=== PATIENT | female | born 1980 | race Caucasian/White ===

== ENCOUNTER 2019-05-18 07:00 | Inpatient (IN) | payer OTHER ==
[2019-05-18] MEDS: DEXTROSE 5%-LACTATED RINGERS 1,000 ML IV SCH ×2 (09:00→16:30)
[2019-05-18 09:52] LABS: BASO % 0.6 % (0-2.0); HEMATOCRIT 33.8 % (32.4-45.2); HEMOGLOBIN 11.2 GM/dL (10.7-15.3); LYMPH % 21.6 % (8-40); MCH 30.4 pg (25.7-33.7); MCHC 33.1 g/dl (32.0-36.0); MEAN CELL VOLUME 91.8 fl (80-96); MEAN PLT VOLUME 8.1 fl (7.5-11.1); MONO % 10.5 % (3.8-10.2); NEUT % 57.3 % (42.8-82.8); PLATELET COUNT 175 K/MM3 (134-434); RBC 3.68 M/mm3 (3.60-5.2); WHITE BLOOD COUNT 7.6 K/mm3 (4.0-10.0)
[2019-05-18 09:54] VITALS: BMI 26.9
[2019-05-18 10:07] LABS: INR 0.97 (0.83-1.09); PROTHROMBIN TIME (PATIENT) 11.4 SEC (9.7-13.0)
[2019-05-18 10:10] LABS: ACTIVATED PTT 29.6 SECONDS (25.2-36.5)
[2019-05-18 10:12] LABS: CALCIUM 8.8 mg/dL (8.5-10.1); CREATININE 0.4 mg/dL (0.55-1.3); POTASSIUM 3.7 mmol/L (3.5-5.1)
[2019-05-18] MEDS ORDERED: PROMETHAZINE HCL 25 MG/1 ML VIAL IVPUSH ONE (10:51)
[2019-05-18] MEDS ORDERED: BUTORPHANOL TARTRATE 1 MG/ML VIAL IVPB ONE (10:51)
[2019-05-18] MEDS ORDERED: DINOPROSTONE 10 MG VAGINAL SUPPOSITORY VG ONE (10:52)
[2019-05-18] MEDS ORDERED: ELECTROLYTE-148 SOLN 1,000 ML IV SCH (11:00)
--- NOTE | 2019-05-18 11:01 | HP ---
Past Medical History - Primary Care Physician PCP:: Kaylynn Robins - Admission Chief Complaint: ama. grand multip. 40.1 week History of Present Illness: 38 yo EDC 05/17/19 ega 40.1 weeks admitted for induction pt with multi and AMA History Source: Patient Limitations to Obtaining History: No Limitations - Past Medical History ...: 8 ...Para: 6 ...Term: 6 ...: 0 ...Spon : 1 ...Induced : 0 ...Multiple Gestation: 0 ...LMP: 10/04/18 ... Weeks Gestation by Dates: 40.1 ...EDC by Dates: 05/17/19 ...EDC by Sono: 05/17/19 - Past Surgical History Past Surgical History: Yes: None Hx Myomectomy: No Hx Transabdominal Cerclage: No - Smoking History Smoking history: Never smoked - Alcohol/Substance Use Hx Alcohol Use: No History of Substance Use: reports: None - Social History Usual Living Arrangement: Yes: With Spouse Home Medications - Allergies Allergies/Adverse Reactions: Allergies Allergy/AdvReac Type Severity Reaction Status Date / Time No Known Drug Allergies Allergy Verified 05/18/19 09:22 - Home Medications Home Medications: Ambulatory Orders Prenat 115/Iron Fum/Folic/Dss [ 19 Tablet] 1 each PO DAILY 05/18/19 Review of Systems - Review of Systems Constitutional: reports: No Symptoms Eyes: reports: No Symptoms HENT: reports: No Symptoms Neck: reports: No Symptoms Cardiovascular: reports: No Symptoms Respiratory: reports: No Symptoms Gastrointestinal: reports: No Symptoms Genitourinary: reports: No Symptoms Breasts: reports: No Symptoms Reported Musculoskeletal: reports: No Symptoms Integumentary: reports: No Symptoms Neurological: reports: No Symptoms Endocrine: reports: No Symptoms Hematology/Lymphatic: reports: No Symptoms Psychiatric: reports: No Symptoms Physical Exam - Maternity Vital Signs: Vital Signs Temperature 98.1 F 05/18/19 09:39 Pulse Rate 99 H 05/18/19 09:39 Respiratory Rate 20 05/18/19 09:39 Blood Pressure 133/80 05/18/19 09:39 O2 Sat by Pulse Oximetry (%) Constitutional: Yes: Well Nourished, No Distress Lungs: Clear to auscultation Breast(s): Yes: WNL - Abdominal Exam/OB Number of Fetuses: Single Presentation: Vertex Contractions: Yes Regularity: Regular Monitor Mode: External Heart Rate (range): 140 Heart Rate Location: [facility] Category: I - Vaginal Exam/OB Dilatation (cm): 3 Effacement (%): 50 Amniotic Membrane Status: Intact Presentation: Vertex/Position Station: -2 - Physical Exam Musculoskeletal: Yes: WNL Extremities: Yes: WNL Psychiatric: Yes: WNL, Alert, Oriented - Labs Lab Results: CBC, BMP 05/18/19 09:33 05/18/19 09:33 Hemorrhage Risk Assessment - Risk Factors Medium Risk Factors: Yes: Greater than 4 previous births Risk Score: 1 Risk Level: Medium Risk Problem List - Problems (1) Elderly multigravida in third trimester Problems reviewed: Yes Code(s): O09.523 - SUPERVISION OF ELDERLY MULTIGRAVIDA, THIRD TRIMESTER (2) Grand multipara Problems reviewed: Yes Code(s): Z64.1 - PROBLEMS RELATED TO MULTIPARITY Assessment/Plan Cat 1 IUp at 40 week grand multip 40.1 weeks AMA Plan Cervidil
[2019-05-18] MEDS ORDERED: AMPICILLIN - 2 GM in SODIUM CHLORIDE 100 ML IVPB ONE (11:02)
[2019-05-18] MEDS ORDERED: AMPICILLIN SODIUM 2 GM VIAL ONE (12:21)
[2019-05-18] MEDS ORDERED: AMPICILLIN SODIUM 1 GM VIAL ONE ×3 (16:11→20:23)
[2019-05-18] MEDS: AMPICILLIN - 1 GM in SODIUM CHLORIDE 100 ML IVPB SCH ×2 (16:31→20:20)
[2019-05-18] MEDS ORDERED: OXYTOCIN 20 UNITS in 0.9% NS 20 UNIT/1,000 ML INFUS.BAG IV ONE (20:23)
--- NOTE | 2019-05-18 20:41 | PN ---
Delivery - Delivery Vaginal Delivery: No Problems (Nuchal Cord x1) Type of Anesthesia: None Episiotomy/Laceration: 1st degree (repaired wit 2-0 chromic suture) EBL (cc): 300 Delivery, Single - Stages of Labor Placenta: Yes: Spontaneous - Condition of Infant Position: OA - Feeding Plan Initial Plan: Elected not to breastfeed exclusively throughout hospitalization Benefits of Exclusively reinforced: Yes
[2019-05-18] MEDS ORDERED: BENZOCAINE 20% 57 GM BOTTLE TP PRN (20:42)
[2019-05-18] MEDS ORDERED: WITCH HAZEL 50% (TUCKS) 40 PAD/JAR PAD TP PRN (20:42)
[2019-05-18] MEDS ORDERED: BISACODYL 10 MG SUPP.RECT PR PRN (20:42)
[2019-05-18] MEDS ORDERED: METHYLERGONOVINE MALEATE 0.2 MG/1 ML AMP IM PRN (20:42)
[2019-05-18] MEDS ORDERED: IBUPROFEN 600 MG TABLET (FP) PO PRN (20:42)
[2019-05-18] MEDS ORDERED: BENZOCAINE 28 GM HEMORRHOIDAL OINTMENT PR PRN (20:42)
[2019-05-18] MEDS ORDERED: ACETAMINOPHEN 325 MG TABLET (FP) ONE (22:14)
[2019-05-18] MEDS: OXYTOCIN 20 UNITS in 0.9% NS 20 UNIT/1,000 ML INFUS.BAG IV SCH (22:15)
[2019-05-18] MEDS: ACETAMINOPHEN 325 MG TABLET (FP) PO PRN (22:19)
[2019-05-18 23:13] LABS: BASO % 0.4 % (0-2.0); EOS % 3.4 % (0-4.5); HEMATOCRIT 29.2 % (32.4-45.2); HEMOGLOBIN 9.5 GM/dL (10.7-15.3); LYMPH % 10.6 % (8-40); MCHC 32.5 g/dl (32.0-36.0); MEAN CELL VOLUME 92.2 fl (80-96); MEAN PLT VOLUME 8.2 fl (7.5-11.1); MONO % 7.2 % (3.8-10.2); NEUT % 78.4 % (42.8-82.8); PLATELET COUNT 184 K/MM3 (134-434); RBC 3.17 M/mm3 (3.60-5.2); RDW 13.6 % (11.6-15.6); WHITE BLOOD COUNT 15.6 K/mm3 (4.0-10.0)
[2019-05-19] MEDS ORDERED: SODIUM CHLORIDE 500 ML IV ONE (00:30)
[2019-05-19] MEDS ORDERED: CARBOPROST TROMETHAMINE 250 MCG/ML AMPUL IM ONE (00:30)
[2019-05-19] MEDS: OXYTOCIN 20 UNITS in 0.9% NS 20 UNIT/1,000 ML INFUS.BAG IV SCH (01:00)
[2019-05-19] MEDS ORDERED: OXYTOCIN 20 UNITS in 0.9% NS 20 UNIT/1,000 ML INFUS.BAG IV ONE (01:06)
[2019-05-19] MEDS ORDERED: SODIUM CHLORIDE 1,000 ML IV SCH (01:30)
[2019-05-19 01:32] LABS: HEMATOCRIT 27.1 % (32.4-45.2); HEMOGLOBIN 8.8 GM/dL (10.7-15.3); MCH 30.3 pg (25.7-33.7); MCHC 32.6 g/dl (32.0-36.0); MEAN CELL VOLUME 92.9 fl (80-96); MEAN PLT VOLUME 8.3 fl (7.5-11.1); PLATELET COUNT 175 K/MM3 (134-434); RBC 2.91 M/mm3 (3.60-5.2); RDW 13.8 % (11.6-15.6); WHITE BLOOD COUNT 16.9 K/mm3 (4.0-10.0)
[2019-05-19] MEDS: AMPICILLIN - 1 GM in SODIUM CHLORIDE 100 ML IVPB SCH (02:44)
[2019-05-19 08:04] LABS: BASO % 0.3 % (0-2.0); EOS % 1.5 % (0-4.5); HEMATOCRIT 21.8 % (32.4-45.2); LYMPH % 14.4 % (8-40); MCH 29.9 pg (25.7-33.7); MCHC 32.2 g/dl (32.0-36.0); MEAN PLT VOLUME 8.4 fl (7.5-11.1); MONO % 9.1 % (3.8-10.2); NEUT % 74.7 % (42.8-82.8); PLATELET COUNT 150 K/MM3 (134-434); RBC 2.35 M/mm3 (3.60-5.2); WHITE BLOOD COUNT 14.3 K/mm3 (4.0-10.0)
[2019-05-19] MEDS ORDERED: DOCUSATE SODIUM 100 MG CAPSULE (FP) PO PRN (08:06)
--- NOTE | 2019-05-19 08:07 | PN ---
Post Note - Post Date of Delivery: 05/18/19 Post Day: 1 Vital Signs: Vital Signs - 24 hr 05/18/19 05/18/19 05/18/19 09:00 09:39 10:00 Temperature 97.8 F 98.1 F 98.4 F Pulse Rate 89 99 H 88 Respiratory 18 20 18 Rate Blood Pressure 133/80 133/80 129/75 O2 Sat by Pulse Oximetry (%) 05/18/19 05/18/19 05/18/19 11:00 12:00 13:00 Temperature Pulse Rate 90 98 H 97 H Respiratory 20 20 20 Rate Blood Pressure 134/78 119/65 134/74 O2 Sat by Pulse Oximetry (%) 05/18/19 05/18/19 05/18/19 14:00 15:00 17:00 Temperature 98.4 F 99 F Pulse Rate 102 H 100 H 86 Respiratory 20 20 18 Rate Blood Pressure 119/69 122/74 128/73 O2 Sat by Pulse Oximetry (%) 05/18/19 05/18/19 05/18/19 19:00 20:00 21:45 Temperature Pulse Rate 89 82 79 Respiratory 18 18 18 Rate Blood Pressure 129/78 131/83 112/65 O2 Sat by Pulse Oximetry (%) 05/18/19 05/18/19 05/18/19 22:00 22:15 22:30 Temperature 98.6 F Pulse Rate 78 88 85 Respiratory 18 18 18 Rate Blood Pressure 120/77 105/85 121/68 O2 Sat by Pulse Oximetry (%) 05/18/19 05/18/19 05/18/19 22:45 23:15 23:20 Temperature Pulse Rate 98 H 98 H 85 Respiratory 22 H 22 H 20 Rate Blood Pressure 101/70 88/60 L 102/47 L O2 Sat by Pulse Oximetry (%) 05/18/19 05/18/19 05/18/19 23:30 23:35 23:40 Temperature 98.4 F Pulse Rate 89 76 77 Respiratory 22 H 22 H 20 Rate Blood Pressure 78/59 L 97/70 115/66 O2 Sat by Pulse Oximetry (%) 05/18/19 05/19/19 05/19/19 23:45 00:00 00:15 Temperature Pulse Rate 95 H 93 H 90 Respiratory 20 20 20 Rate Blood Pressure 115/71 120/88 121/76 O2 Sat by Pulse Oximetry (%) 05/19/19 05/19/19 05/19/19 00:30 00:45 01:00 Temperature 98.3 F Pulse Rate 97 H 98 H 95 H Respiratory 20 20 20 Rate Blood Pressure 121/79 99/55 L 125/79 O2 Sat by Pulse Oximetry (%) 05/19/19 05/19/19 05/19/19 01:18 02:00 06:00 Temperature 98.0 F 98.1 F Pulse Rate 93 H 93 H Respiratory 18 18 Rate Blood Pressure 119/69 112/69 O2 Sat by Pulse 98 Oximetry (%) Labs: Laboratory Results - last 24 hr 05/18/19 05/18/19 05/18/19 09:33 09:33 09:33 WBC 7.6 RBC 3.68 Hgb 11.2 Hct 33.8 MCV 91.8 MCH 30.4 MCHC 33.1 RDW 14.0 Plt Count 175 MPV 8.1 Absolute Neuts (auto) 4.4 Neutrophils % 57.3 Lymphocytes % 21.6 Monocytes % 10.5 H Eosinophils % 10.0 H Basophils % 0.6 Nucleated RBC % 0 PT with INR 11.40 INR 0.97 PTT (Actin FS) 29.6 Cord Blood pH Cord Blood PCO2 Cord Blood PO2 Cord Blood HCO3 Cord Base Excess Sodium 138 Potassium 3.7 Chloride 108 H Carbon Dioxide 25 Anion Gap 6 L BUN 10.0 Creatinine 0.4 L Est GFR (CKD-EPI)AfAm 152.06 Est GFR (CKD-EPI)NonAf 131.20 Random Glucose 91 Calcium 8.8 RPR Titer Blood Type Antibody Screen 05/18/19 05/18/19 05/18/19 09:33 09:33 21:04 WBC RBC Hgb Hct MCV MCH MCHC RDW Plt Count MPV Absolute Neuts (auto) Neutrophils % Lymphocytes % Monocytes % Eosinophils % Basophils % Nucleated RBC % PT with INR INR PTT (Actin FS) Cord Blood pH 7.27 Cord Blood PCO2 63.8 Cord Blood PO2 < 49 H Cord Blood HCO3 28.1 Cord Base Excess -0.4 L Sodium Potassium Chloride Carbon Dioxide Anion Gap BUN Creatinine Est GFR (CKD-EPI)AfAm Est GFR (CKD-EPI)NonAf Random Glucose Calcium RPR Titer Nonreactive Blood Type O POSITIVE Antibody Screen Negative 05/18/19 05/18/19 05/19/19 21:04 23:05 00:50 WBC 15.6 H 16.9 H RBC 3.17 L 2.91 L Hgb 9.5 L 8.8 L Hct 29.2 L 27.1 L MCV 92.2 92.9 MCH 30.0 30.3 MCHC 32.5 32.6 RDW 13.6 13.8 Plt Count 184 175 MPV 8.2 8.3 Absolute Neuts (auto) 12.2 H Neutrophils % 78.4 D Lymphocytes % 10.6 D Monocytes % 7.2 Eosinophils % 3.4 Basophils % 0.4 Nucleated RBC % 0 PT with INR INR PTT (Actin FS) Cord Blood pH 7.33 Cord Blood PCO2 50.0 Cord Blood PO2 < 49 H Cord Blood HCO3 25.6 Cord Base Excess -0.7 L Sodium Potassium Chloride Carbon Dioxide Anion Gap BUN Creatinine Est GFR (CKD-EPI)AfAm Est GFR (CKD-EPI)NonAf Random Glucose Calcium RPR Titer Blood Type Antibody Screen - Subjective Subjective: Other (Blood count with severe anemia aftr blood transfusion) - Objective Afebrile: Yes Breast: Not engorged Abdomen: Soft, Non-tender Uterus: Fundus firm, Non-tender Vagina: Scant lochia Extremities: Non-tender - Assessment/Plan (1) Elderly multigravida in third trimester Assessment: S/P Normal , Other ( hemorrhage) Plan: Routine Care, Other (Ferrous sulfate BID transfuse 2 units of blood)
[2019-05-19] MEDS: FERROUS SO4 325 MG TABLET (FP) PO SCH ×2 (09:30→22:26)
[2019-05-19] MEDS: ACETAMINOPHEN 325 MG TABLET (FP) PO PRN (11:56)
[2019-05-20 08:19] LABS: HEMATOCRIT 23.4 % (32.4-45.2); HEMOGLOBIN 7.9 GM/dL (10.7-15.3); MCH 30.3 pg (25.7-33.7); MCHC 33.8 g/dl (32.0-36.0); MEAN CELL VOLUME 89.7 fl (80-96); MEAN PLT VOLUME 7.8 fl (7.5-11.1); PLATELET COUNT 143 K/MM3 (134-434); RBC 2.61 M/mm3 (3.60-5.2); RDW 14.6 % (11.6-15.6); WHITE BLOOD COUNT 9.9 K/mm3 (4.0-10.0)
[2019-05-20] MEDS: FERROUS SO4 325 MG TABLET (FP) PO SCH (10:45)
[2019-05-20] MEDS: ACETAMINOPHEN 325 MG TABLET (FP) PO PRN (10:47)
[2019-05-20 16:23] VITALS: BP 108/62; PULSE 91; TEMP 97.9
== END 2019-05-20 18:00 | disposition home or self-care (01) | DRG 560 ==
LOC: JLDR 07:00 → J3W 05-19 01:17
PROVIDERS: ADMIT Obstetrics & Gynecology; ATTEND Obstetrics & Gynecology
PROC: 10E0XZZ Delivery of Products of Conception, External Approach (ICD-10-PCS; principal; 2019-05-18)
PROC: 0HQ9XZZ Repair Perineum Skin, External Approach (ICD-10-PCS; 2019-05-18)
PROC: 30233N1 Transfusion of Nonautologous Red Blood Cells into Peripheral Vein, Percutaneous Approach (ICD-10-PCS; 2019-05-19)
DX: O69.81X0 Labor and delivery complicated by cord around neck, without compression, not applicable or unspecified (principal); O70.0 First degree perineal laceration during delivery; O72.1 Other immediate postpartum hemorrhage; O99.02 Anemia complicating childbirth; D64.9 Anemia, unspecified; Z3A.40 40 weeks gestation of pregnancy; Z37.0 Single live birth
CPT/HCPCS: 36415; 36430; 36600; 59409; 80048; 82803; 85025; 85027; 85610; 85730; 86593; 86850; 86900; 86901; 86922; J7030; P9038; P9058